=== PATIENT | female | born 1995 | race Caucasian/White ===

== ENCOUNTER 2016-06-16 12:26 | Emergency (ER) | payer OTHER ==
[2016-06-16 12:35] VITALS: BP 127/60; PULSE 88; TEMP 98; BMI 37.4
--- NOTE | 2016-06-16 13:24 | PDOC ---
History of Present Illness - General History Source: Patient Exam Limitations: No Limitations - History of Present Illness Initial Comments: CHIEF COMPLAINT: 21 y/o afebrile , female with lower abdominal cramping this morning. HISTORY OF PRESENT ILLNESS: The patient has no idea when her LMP was - she thinks maybe in february or march. She states she did have a positive test but her first [facility] apptmt is not until this thursday. She states this morning she began having lower abdominal cramps that feel like period cramps. She denies f/c, n/v/d, CP, SOB, back pain, vaginal bleeding, vaginal discharge. Vital signs on arrival are within normal limits. REVIEW OF SYSTEMS: GENERAL/CONSTITUTIONAL: No fever/chills. No weakness. No weight change. HEAD, EYES, EARS, NOSE AND THROAT: No change in vision. No ear pain or discharge. No sore throat. CARDIOVASCULAR: No chest pain or shortness of breath. RESPIRATORY: No cough, wheezing, or hemoptysis. GASTROINTESTINAL: +lower abd cramping. No nausea, vomiting, diarrhea. GENITOURINARY: No dysuria, frequency, or change in urination. MUSCULOSKELETAL: No joint or muscle swelling or pain. No neck or back pain. SKIN: No rash or easy bruising. NEUROLOGIC: No headache, vertigo, loss of consciousness, or loss of sensation. PSYCHIATRIC: No depression or anxiety. ENDOCRINE: No increased thirst. No abnormal weight change. HEMATOLOGIC/LYMPHATIC: No anemia, easy bleeding, or history of blood clots. ALLERGIC/IMMUNOLOGIC: No hives or skin allergy. No latex allergy. PHYSICAL EXAM: GENERAL: The patient is awake, alert, and fully oriented, in no acute distress. She is very well appearing, ambulatory, in NAD or obvious discomfort. She is morbidly obese. HEAD: Normal with no signs of trauma. ENT: Pupils equal, round and reactive to light, extraocular movements intact, sclera anicteric, conjunctiva clear. Neck supple. LUNGS: Clear to auscultation bilaterally. Normal excursion. No respiratory distress or use of accessory muscles. CV: RRR, S1/S2, no MRG. Cap refill < 2 sec. ABDOMEN: Soft, non-distended, non-tender even to deep palpation, no hepatomegaly or splenomegaly, no masses. BACK: No CVA TTP b/l. EXTREMITIES: Normal range of motion, no edema. NEUROLOGICAL: Normal speech, normal gait. CN II-XII grossly intact. PSYCH: Normal mood, normal affect. SKIN: Warm, dry, normal turgor, no rashes or lesions noted. <Bria Mejia - Last Filed: 06/16/16 19:08> <Brandon Mendez - Last Filed: 06/16/16 19:40> <Rob Grijalva - Last Filed: 06/21/16 10:04> - General Chief Complaint: Pain Stated Complaint: ABD PAIN, (WKS N/A) Time Seen by Provider: 06/16/16 13:05 Past History - Past Medical History Anemia: Yes Asthma: No Cancer: No Cardiac Disorders: No Diabetes: No HTN: No Suicide Attempt (Hx): No Seizures: No Thyroid Disease: No - Psycho/Social/Smoking Cessation Hx Suicidal Ideation: No Smoking History: Never smoked Number of Cigarettes Smoked Daily: 0 Information on smoking cessation initiated: No Hx Alcohol Use: No Drug/Substance Use Hx: No Substance Use Type: None Hx Substance Use Treatment: No <Bria Mejia - Last Filed: 06/16/16 19:08> <Brandon Mendez - Last Filed: 06/16/16 19:40> <Rob Grijalva - Last Filed: 06/21/16 10:04> - Past Medical History Allergies/Adverse Reactions: Allergies Allergy/AdvReac Type Severity Reaction Status Date / Time No Known Allergies Allergy Verified 06/16/16 12:35 Home Medications: Ambulatory Orders Cephalexin [Keflex] 500 mg PO BID #14 capsule 06/16/16 *Physical Exam - Vital Signs Last Vital Signs Temp Pulse Resp BP Pulse Ox 98 F 88 18 127/60 98 06/16/16 12:31 06/16/16 12:31 06/16/16 12:31 06/16/16 12:31 06/16/16 12:31 <Bria Mejia - Last Filed: 06/16/16 19:08> - Vital Signs Last Vital Signs Temp Pulse Resp BP Pulse Ox 98 F 88 18 127/60 98 06/16/16 12:31 06/16/16 12:31 06/16/16 12:31 06/16/16 12:31 06/16/16 12:31 <Brandon Mendez - Last Filed: 06/16/16 19:40> - Vital Signs Last Vital Signs Temp Pulse Resp BP Pulse Ox 98 F 88 18 127/60 98 06/16/16 12:31 06/16/16 12:31 06/16/16 12:31 06/16/16 12:31 06/16/16 12:31 <Rob Grijalva - Last Filed: 06/21/16 10:04> ED Treatment Course - LABORATORY CBC & Chemistry Diagram: 06/16/16 14:49 06/16/16 14:49 <Bria Mejia - Last Filed: 06/16/16 19:08> - LABORATORY CBC & Chemistry Diagram: 06/16/16 14:49 06/16/16 14:49 - ADDITIONAL ORDERS Additional order review: Laboratory Results 06/16/16 06/16/16 06/16/16 16:39 14:49 14:49 Sodium 140 Potassium 4.2 Chloride 104 Carbon Dioxide 28 Anion Gap 8 BUN 11 Creatinine 0.7 D Creat Clearance w eGFR > 60 Random Glucose 81 Calcium 9.1 Total Bilirubin 0.4 D AST 23 ALT 44 D Alkaline Phosphatase 116 D Total Protein 7.7 D Albumin 3.7 D Beta HCG, Quant 79591.2 Urine Color Ltyellow Urine Appearance Slcloudy Urine pH 6.0 Ur Specific [place] 1.013 Urine Protein Negative Urine Glucose (UA) Negative Urine Ketones Negative Urine Blood Negative Urine Nitrite Negative Urine Bilirubin Negative Urine Urobilinogen Negative Ur Leukocyte Esterase 3+ H Urine RBC 1 Urine WBC 46 Ur Epithelial Cells Few Urine Bacteria Rare Urine Mucus Few Blood Type O POSITIVE Antibody Screen Negative 06/16/16 14:49 RBC 4.61 D MCV 83.2 MCHC 32.9 RDW 14.4 MPV 8.3 D Neutrophils % 75.2 Lymphocytes % 18.6 Monocytes % 5.1 Eosinophils % 0.7 D Basophils % 0.4 - Medications Given in the ED: ED Medications Discontinued Medications Generic Name Dose Route Start Last Admin Trade Name Freq PRN Reason Stop Dose Admin Cephalexin HCl 500 mg 06/16/16 18:53 06/16/16 19:29 Keflex - PO 06/16/16 18:54 500 mg ONCE ONE Administration <Brandon Mendez - Last Filed: 06/16/16 19:40> - LABORATORY CBC & Chemistry Diagram: 06/16/16 14:49 06/16/16 14:49 - ADDITIONAL ORDERS Additional order review: 06/16/16 16:39 Urine Culture - Final Urine - Urine Clean Catch NO GROWTH OBTAINED 06/16/16 14:49 RBC 4.61 D MCV 83.2 MCHC 32.9 RDW 14.4 MPV 8.3 D Neutrophils % 75.2 Lymphocytes % 18.6 Monocytes % 5.1 Eosinophils % 0.7 D Basophils % 0.4 - Medications Given in the ED: ED Medications Discontinued Medications Generic Name Dose Route Start Last Admin Trade Name Frechava PRN Reason Stop Dose Admin Cephalexin HCl 500 mg 06/16/16 18:53 06/16/16 19:29 Keflex - PO 06/16/16 18:54 500 mg ONCE ONE Administration <Rob Grijalva - Last Filed: 06/21/16 10:04> Medical Decision Making - Medical Decision Making A/P: 21 y/o afebrile female with lower abdominal cramping today. Plan is as follows: 1. Labs 2. UA/culture 3. Beta hcg 4. ultrasound Labs unremarkable UA positive for UTI. Will give PO keflex in the ER. Transvaginal Ultrasound IMPRESSION: Single live intrauterine of 7 weeks 1 day. heart rate detected. Ovaries normal. Will discharge to home with Rx for keflex and instructed her to finish entire course. Suggested she keep her [facility] appointment scheduled for thursday and return to the ER with any worsening or concerning symptoms. The patient verbalizes understanding of all instructions, has no further questions and is awaiting discharge. <Bria Mejia - Last Filed: 06/16/16 19:08> - Medical Decision Making 06/21/16 10:04 The patient was seen and evaluated in conjunction with MITCH Mejia under my direct supervision, ancillary studies were reviewed. I agree with the plan as outlined by MITCH Mejia . <Rob Grijalva - Last Filed: 06/21/16 10:04> *DC/Admit/Observation/Transfer <Bria Mejia - Last Filed: 06/16/16 19:08> <Brandon Mendez - Last Filed: 06/16/16 19:40> <Rob Grijalva - Last Filed: 06/21/16 10:04> Diagnosis at time of Disposition: UTI (urinary tract infection) during , Abdominal pain complicating - Discharge Dispostion Disposition: HOME Condition at time of disposition: Good - Prescriptions Prescriptions: Cephalexin [Keflex] 500 mg PO BID #14 capsule - Patient Instructions Printed Discharge Instructions: DI for Urinary Tract Infection (UTI), DI for Abdominal Pain -- Early Additional Instructions: Discharge Instructions: -Take Tylenol if needed for pain -Take entire 7 days of Keflex for UTI -Keep your [facility] appointment scheduled for Thursday -Return to the ER with any worsening or concerning symptoms. Print Language: WOLOF - Post Discharge Activity Work/School Note: Parent(s) Back to Work Note
[2016-06-16 15:02] LABS: BASOPHIL 0.4 % (0-2.0); EOSINOPHIL 0.7 % (0-4.5); MCH 27.3 pg (25.7-33.7); MCHC 32.9 g/dl (32.0-36.0); MEAN CELL VOLUME 83.2 fl (80-96); MEAN PLT VOLUME 8.3 fl (7.5-11.1); NEUTROPHILS 75.2 % (42.8-82.8); PLATELET COUNT 347 K/MM3 (134-434); RDW 14.4 % (11.6-15.6); WHITE BLOOD COUNT 15.8 K/mm3 (4.0-10.0)
[2016-06-16 15:38] LABS: ALBUMIN 3.7 g/dl (3.4-5.0); ANION GAP 8 (8-16); CALCIUM 9.1 mg/dL (8.5-10.1); CO2 28 mmol/L (21-32); CREATININE 0.7 mg/dL (0.55-1.02); GLUCOSE,RANDOM 81 mg/dL (74-106); SGOT/AST 23 U/L (15-37)
[2016-06-16 15:56] LABS: ALK PHOS 116 U/L (45-117); BILIRUBIN,TOTAL 0.4 mg/dL (0.2-1.0); SGPT/ALT 44 U/L (12-78); TOT PROT 7.7 g/dl (6.4-8.2)
[2016-06-16 16:59] LABS: URINE APPEARANCE SLCLOUDY; URINE BILIRUBIN NEGATIVE (NEGATIVE); URINE BLOOD NEGATIVE (NEGATIVE); URINE COLOR LTYELLOW; URINE GLUCOSE (UA) NEGATIVE (NEGATIVE); URINE KETONE NEGATIVE (NEGATIVE); URINE NITRITE NEGATIVE (NEGATIVE); URINE PROTEIN NEGATIVE (NEGATIVE); URINE UROBILINOGEN NEGATIVE E.U./dl (0.2-1.0)
[2016-06-16 17:00] LABS: URINE LEUK ESTERASE 3+ (NEGATIVE)
[2016-06-16 17:01] LABS: URINE BACTERIA RARE /hpf (NONE SEEN); URINE MUCUS FEW; URINE RBC 1 /hpf (0-3); URINE WBC 46 /hpf (3-5)
[2016-06-16] MEDS ORDERED: CEPHALEXIN MONOHYDRATE 500 MG CAPSULE (UD) PO ONE (18:53)
[2016-06-16] MEDS ORDERED: CEPHALEXIN MONOHYDRATE 250 MG CAPSULE (FP) ONE (19:04)
== END 2016-06-16 19:47 | disposition home or self-care (01) ==
LOC: JER 12:26
DX: O23.41 Unspecified infection of urinary tract in pregnancy, first trimester (principal); Z3A.01 Less than 8 weeks gestation of pregnancy
CPT/HCPCS: 36415; 76817-TC; 80053; 81003; 81015; 84702; 85025; 86850; 86900; 86901; 87086; 99283-25

== ENCOUNTER 2017-01-26 09:20 | Inpatient (IN) | payer OTHER ==
[2017-01-26] MEDS ORDERED: BUTORPHANOL TARTRATE 1 MG/ML VIAL IVPUSH ONE (10:40)
[2017-01-26] MEDS ORDERED: PROMETHAZINE HCL 25 MG/1 ML VIAL IVPUSH ONE (10:40)
[2017-01-26] MEDS: DEXTROSE 5%-LACTATED RINGERS 1,000 ML IV SCH (10:45)
[2017-01-26 11:48] VITALS: BMI 42.3
[2017-01-26 11:56] LABS: BASOPHIL 0.2 % (0-2.0); EOSINOPHIL 0.1 % (0-4.5); MCHC 33.1 g/dl (32.0-36.0); MEAN CELL VOLUME 84.6 fl (80-96); NEUTROPHILS 87.3 % (42.8-82.8); PLATELET COUNT 216 K/MM3 (134-434); RDW 16.1 % (11.6-15.6); WHITE BLOOD COUNT 17.4 K/mm3 (4.0-10.0)
[2017-01-26 12:12] LABS: ANION GAP 11 (8-16); CALCIUM 8.7 mg/dL (8.5-10.1); CO2 22 mmol/L (21-32); CREATININE 0.5 mg/dL (0.55-1.02); GLUCOSE,RANDOM 113 mg/dL (74-106)
[2017-01-26 12:33] LABS: INR 1.05 (0.82-1.09); PROTHROMBIN TIME (PATIENT) 11.6 SEC (9.98-11.88)
[2017-01-26 12:36] LABS: ACTIVATED PTT 28.5 SECONDS (26.9-34.4)
[2017-01-26] MEDS: ELECTROLYTE-148 SOLN 1,000 ML IV SCH ×2 (14:15→16:40)
--- NOTE | 2017-01-26 14:42 | HP ---
Past Medical History - Admission Chief Complaint: Labor pain History of Present Illness: 21 yo @ 39 weeks gestation, admitted for labor pain. She denies any ROM nor vaginal bleeding. History Source: Patient Limitations to Obtaining History: No Limitations - Past Medical History ...: 2 ...Para: 1 ...Term: 1 ...: 0 ...Spon : 0 ...Induced : 0 ...Multiple Gestation: 0 ...LMP: 04/22/16 ... Weeks Gestation by Dates: 39.6 ...EDC by Dates: 01/27/17 ...EDC by Sono: 01/27/17 Heme/Onc: Yes: Anemia - Past Surgical History Past Surgical History: Yes: None Hx Myomectomy: No Hx Transabdominal Cerclage: No - Smoking History Smoking history: Never smoked Have you smoked in the past 12 months: No Aproximately how many cigarettes per day: 0 - Alcohol/Substance Use Hx Alcohol Use: No - Social History Usual Living Arrangement: Yes: With Spouse History of Recent Travel: No Home Medications - Allergies Allergies/Adverse Reactions: Allergies Allergy/AdvReac Type Severity Reaction Status Date / Time No Known Allergies Allergy Verified 01/26/17 11:06 - Home Medications Home Medications: Ambulatory Orders Ferrous Sulfate [Feosol] 325 mg PO DAILY 01/26/17 Vit/Iron Fumarate/FA [ Tablet] 1 each PO DAILY 01/26/17 Family Disease History - Family Disease History Family History: Unremarkable Review of Systems - Review of Systems Constitutional: reports: No Symptoms Eyes: reports: No Symptoms HENT: reports: No Symptoms Neck: reports: No Symptoms Cardiovascular: reports: No Symptoms Respiratory: reports: No Symptoms Gastrointestinal: reports: No Symptoms Genitourinary: reports: Pain Breasts: reports: No Symptoms Reported Musculoskeletal: reports: No Symptoms Integumentary: reports: No Symptoms Neurological: reports: No Symptoms Psychiatric: reports: No Symptoms Pain Intensity: 6 Physical Exam - Maternity Vital Signs: Vital Signs Temperature 98.2 F 01/26/17 14:00 Pulse Rate 97 H 01/26/17 14:00 Respiratory Rate 20 01/26/17 14:00 Blood Pressure 110/57 01/26/17 14:00 O2 Sat by Pulse Oximetry (%) Constitutional: Yes: Well Nourished Eyes: Yes: Conjunctiva Clear HENT: Yes: Atraumatic Neck: Yes: Supple Cardiovascular: Yes: Regular Rate and Rhythm Lungs: Clear to auscultation - Abdominal Exam/OB Number of Fetuses: Single Presentation: Vertex Intensity: Moderate - Physical Exam ...Motor Strength: WNL Psychiatric: Yes: Alert, Oriented - Labs Lab Results: CBC, BMP 01/26/17 11:30 01/26/17 11:30 Problem List - Problems (1) Pain during labor Code(s): O99.89 - OTH DISEASES AND CONDITIONS COMPL PREG/CHLDBRTH R52 - PAIN, UNSPECIFIED Assessment/Plan Active labor Admit to L&D Analgesia as needed Anticipate
[2017-01-26] MEDS: FENTANYL/BUPIVACAINE/NS/PF - PCEA - 50 ML DISP.SYRIN EP SCH (15:20)
[2017-01-26] MEDS ORDERED: CITRIC ACID/SODIUM CITRATE 30 ML UNIT-DOSE CUP PO ONE (18:23)
--- NOTE | 2017-01-26 18:29 | PN ---
Progress Note (short form) - Note Progress Note: Patient seen and evaluated, she's comfortable after epidural anesthesia. There was and episode of bradycardia thereafter FHR remained at 180 BPM. Extensive discussion with patient and partner. VE : Decision made for Consent signed Anesthesia to see patient. Problem List - Problems (1) Pain during labor Code(s): O99.89 - OTH DISEASES AND CONDITIONS COMPL PREG/CHLDBRTH R52 - PAIN, UNSPECIFIED
--- NOTE | 2017-01-26 18:30 | OP ---
Operative Note - Note: Operative Date: 01/26/17 Pre-Operative Diagnosis: Non Reassuring Heart Rate Operation: Primary Post-Operative Diagnosis: Same as Pre-op Surgeon: Sharonda Da Silva Element Setter: Brandon Hemphill Anesthesia: Epidural Specimens Removed: Placenta
[2017-01-26] MEDS ORDERED: morphine SULFATE/Preservative Free 0.5 MG/ML (1cc Syringe) EP ONE (19:05)
[2017-01-26] MEDS ORDERED: ONDANSETRON 4 MG/2 ML VIAL IVPB PRN (19:05)
[2017-01-26] MEDS ORDERED: SENNOSIDES/DOCUSATE COMBO (SENNA PLUS) TABLET (UD) PO PRN (20:03)
[2017-01-26] MEDS ORDERED: METHYLERGONOVINE MALEATE 0.2 MG/1 ML AMP IM PRN (20:03)
[2017-01-26] MEDS ORDERED: oxyCODONE HCL 5 MG TABLET PO PRN (20:03)
[2017-01-26] MEDS ORDERED: IBUPROFEN 800 MG/8 ML IJ IVPB PRN (20:03)
--- NOTE | 2017-01-26 20:06 | PN ---
Delivery - Delivery Section: Primary Type of Anesthesia: Epidural EBL (cc): 700 Delivery, Single - Feeding Plan Initial Plan: Exclusive throughout hospitalization
[2017-01-26] MEDS ORDERED: D5W-LR W/ 20 UNITS OXYTOCIN 1,000 ML IV SCH (20:15)
[2017-01-27 08:03] LABS: MCH 27.4 pg (25.7-33.7); MCHC 32.3 g/dl (32.0-36.0); MEAN CELL VOLUME 84.9 fl (80-96); MEAN PLT VOLUME 9.6 fl (7.5-11.1); PLATELET COUNT 201 K/MM3 (134-434); RDW 15.8 % (11.6-15.6); WHITE BLOOD COUNT 21.1 K/mm3 (4.0-10.0)
[2017-01-27] MEDS: FERROUS SO4 325 MG TABLET (FP) PO SCH ×2 (09:22→17:58)
[2017-01-27] MEDS: PRENATAL VITAMINS W/ FOLIC ACID TABLET (FP) PO SCH (09:22)
[2017-01-27 10:59] LABS: METAMYELOCYTE 1 % (0-2); PLATELET ESTIMATE ADEQUATE (NORMAL); TOTAL CELLS COUNTED 100
[2017-01-27] MEDS: ACETAMINOPHEN 325 MG TABLET (FP) PO PRN ×3 (12:38→21:22)
[2017-01-27] MEDS: SIMETHICONE 80 MG TAB.CHEW (FP) PO PRN ×3 (12:38→21:21)
--- NOTE | 2017-01-27 13:48 | PN ---
Progress Note (short form) - Note Progress Note: POD #1 - s/p under epidural anesthesia with duramorph. Pt. doing well , sitting up comfortably in bed. No complaints. Good pain control. No apparent anesthetic complications noted. Continue current care.
--- NOTE | 2017-01-27 14:23 | PN ---
Post Progress Note - Subjective Subjective: 21 yo Para 2, status post primary , seen and evaluated. Doing well. Post Day: 1 Type of Delivery: Primary C/S Vital Signs: Vital Signs Temperature 99.3 F 01/27/17 09:00 Pulse Rate 89 01/27/17 09:00 Respiratory Rate 20 01/27/17 13:00 Blood Pressure 103/63 01/27/17 09:00 O2 Sat by Pulse Oximetry (%) 100 01/26/17 21:05 Breast Exam: Yes: Soft Uterus: Yes: Fundus Firm Incision: Yes: Dressing dry and intact Abdomen/GI: Yes: Abdomen soft, Tolerating PO Lochia: Yes: Rubra Lochia, amount: Small Extremities: Yes: Calves non-tender Perineum: Yes: Intact Activity: Other (She's lying in bed) - Labs Labs: CBC WBC 21.1 K/mm3 (4.0-10.0) H 01/27/17 06:00 RBC 3.44 M/mm3 (3.60-5.2) L 01/27/17 06:00 Hgb 9.4 GM/dL (10.7-15.3) L D 01/27/17 06:00 Hct 29.2 % (32.4-45.2) L 01/27/17 06:00 MCV 84.9 fl (80-96) 01/27/17 06:00 MCH 27.4 pg (25.7-33.7) 01/27/17 06:00 MCHC 32.3 g/dl (32.0-36.0) 01/27/17 06:00 RDW 15.8 % (11.6-15.6) H 01/27/17 06:00 Plt Count 201 K/MM3 (134-434) 01/27/17 06:00 MPV 9.6 fl (7.5-11.1) 01/27/17 06:00 Total Counted 100 01/27/17 06:00 Neutrophils % Y 01/27/17 06:00 Neutrophils % (Manual) 81 % (42.8-82.8) 01/27/17 06:00 Band Neuts % (Manual) 1 % (0-10) 01/27/17 06:00 Lymphocytes % Y 01/27/17 06:00 Lymphocytes % (Manual) 13 % (8-40) 01/27/17 06:00 Monocytes % 3.0 % (3.8-10.2) L 01/26/17 11:30 Monocytes % (Manual) 4 % (3.8-10.2) 01/27/17 06:00 Eosinophils % 0.1 % (0-4.5) D 01/26/17 11:30 Basophils % 0.2 % (0-2.0) 01/26/17 11:30 Platelet Estimate Adequate (NORMAL) 01/27/17 06:00 Problem List - Problems (1) Pain during labor Code(s): O99.89 - OTH DISEASES AND CONDITIONS COMPL PREG/CHLDBRTH R52 - PAIN, UNSPECIFIED Assessment/Plan Status post primary Stable Ambulation Analgesia as needed Continue routine post op care
[2017-01-27] MEDS: IBUPROFEN 600 MG TABLET (FP) PO PRN ×2 (16:22→21:21)
[2017-01-27] MEDS: DEXTROSE 5%-LACTATED RINGERS 1,000 ML IV SCH (16:23)
[2017-01-27] MEDS: FENTANYL/BUPIVACAINE/NS/PF - PCEA - 50 ML DISP.SYRIN EP SCH (19:38)
[2017-01-27] MEDS ORDERED: BISACODYL 10 MG SUPP.RECT RC PRN (20:03)
--- NOTE | 2017-01-28 08:30 | PN ---
Post Progress Note - Subjective Subjective: c/o pain scale 7/10 , voiding without difficulty Post Day: 2 Type of Delivery: Primary C/S Vital Signs: Vital Signs Temperature 97.6 F 01/27/17 21:00 Pulse Rate 89 01/27/17 21:00 Respiratory Rate 20 01/27/17 21:00 Blood Pressure 96/60 01/27/17 21:00 O2 Sat by Pulse Oximetry (%) 100 01/26/17 21:05 Breast Exam: Yes: Soft, Other (BF ). No: Engorged Uterus: Yes: Fundus Firm, Fundus below umbilicus, Non-tender Incision: Yes: Dressing dry and intact (to be removed today. ) Abdomen/GI: Yes: Abdomen soft, Passing flatus, Tolerating PO (diet ). No: Abdominal Distention, Tender Lochia: Yes: Rubra Lochia, amount: Moderate Extremities: Yes: Calves non-tender, Edema Perineum: Yes: Intact Activity: Ambulating - Labs Labs: CBC WBC 21.1 K/mm3 (4.0-10.0) H 01/27/17 06:00 RBC 3.44 M/mm3 (3.60-5.2) L 01/27/17 06:00 Hgb 9.4 GM/dL (10.7-15.3) L D 01/27/17 06:00 Hct 29.2 % (32.4-45.2) L 01/27/17 06:00 MCV 84.9 fl (80-96) 01/27/17 06:00 MCH 27.4 pg (25.7-33.7) 01/27/17 06:00 MCHC 32.3 g/dl (32.0-36.0) 01/27/17 06:00 RDW 15.8 % (11.6-15.6) H 01/27/17 06:00 Plt Count 201 K/MM3 (134-434) 01/27/17 06:00 MPV 9.6 fl (7.5-11.1) 01/27/17 06:00 Total Counted 100 01/27/17 06:00 Neutrophils % Y 01/27/17 06:00 Neutrophils % (Manual) 81 % (42.8-82.8) 01/27/17 06:00 Band Neuts % (Manual) 1 % (0-10) 01/27/17 06:00 Lymphocytes % Y 01/27/17 06:00 Lymphocytes % (Manual) 13 % (8-40) 01/27/17 06:00 Monocytes % 3.0 % (3.8-10.2) L 01/26/17 11:30 Monocytes % (Manual) 4 % (3.8-10.2) 01/27/17 06:00 Eosinophils % 0.1 % (0-4.5) D 01/26/17 11:30 Basophils % 0.2 % (0-2.0) 01/26/17 11:30 Platelet Estimate Adequate (NORMAL) 01/27/17 06:00 Assessment/Plan post c/s #day2 stable. anemia noted , stable plan encourage ambulation & po fluids
[2017-01-28] MEDS: SIMETHICONE 80 MG TAB.CHEW (FP) PO PRN ×3 (09:32→22:37)
[2017-01-28] MEDS: PRENATAL VITAMINS W/ FOLIC ACID TABLET (FP) PO SCH (09:32)
[2017-01-28] MEDS: FERROUS SO4 325 MG TABLET (FP) PO SCH ×2 (09:32→18:04)
[2017-01-28] MEDS: IBUPROFEN 600 MG TABLET (FP) PO PRN ×3 (09:33→22:37)
[2017-01-28] MEDS: ACETAMINOPHEN 325 MG TABLET (FP) PO PRN (09:34)
[2017-01-28] MEDS: oxyCODONE HCL 5 MG TABLET PO PRN ×3 (12:33→22:38)
--- NOTE | 2017-01-28 16:44 | PATH ---
Surgical Pathology Report Patient Name: TWYLA LYNCH Med. Rec. #: [id number] /Age/Gender: 1995 (Age: 21) / F Account: [id number] Location: [facility] OBS/CLINICAL SOCIOLOGIST Taken: 01/26/2017 Received: 01/27/2017 Reported: 01/28/2017 Physicians: Sharonda Da Silva M.D. Specimen(s) Received PLACENTA Clinical History 39.6 weeks, obese, December 2014 Primary c/section tachycardia Final Diagnosis PLACENTA, DELIVERY: FOCALLY DISRUPTED THIRD TRIMESTER PLACENTA WITH MILD INCREASE IN PREVILLOUS, PERIVILLOUS, AND PRECHORIONIC FIBRIN DEPOSITION, EXTENSIVE CALCIFICATIONS, THREE VESSEL UMBILICAL CORD WITH PARAMARGINAL INSERTION, AND PLACENTAL MEMBRANES WITH CIRCUMMARGINATE INSERTION. Electronically Signed Eh Saldana M.D. Gross Description The specimen is received fresh, labeled "placenta" and is a 558 gram, 16 x 13 x 4 cm partially lacerated and disrupted placenta with attached membranes and umbilical cord. The attached membranes are glistening and translucent and insert in a circummarginate manner up to 2 cm from the central margin. The umbilical cord measures 57 cm in length and averages 1 cm in diameter. The cord inserts paramarginally, 1 cm to the nearest margin. No true knots or strictures are identified. Cut surface of the umbilical cord reveals 3 vessels. The surface is vee-blue with minimal fibrin deposition and appropriate caliber vessels. The maternal surface is red-brown with focal defects. Sectioning reveals red-brown, spongy parenchyma. No focal lesions are identified. Placement Assistant sections are submitted in three cassettes as follows: 1- membrane rolls and umbilical cord; 2-3- full thickness sections of placenta. [facility]/01/27/2017 [facility]/01/27/2017
[2017-01-29] MEDS: IBUPROFEN 600 MG TABLET (FP) PO PRN ×4 (05:35→20:05)
[2017-01-29] MEDS: oxyCODONE HCL 5 MG TABLET PO PRN ×4 (05:36→20:05)
[2017-01-29] MEDS: FERROUS SO4 325 MG TABLET (FP) PO SCH ×2 (08:03→17:09)
[2017-01-29 08:39] LABS: BASOPHIL 0.2 % (0-2.0); EOSINOPHIL 1.2 % (0-4.5); MCH 27.4 pg (25.7-33.7); MCHC 32.3 g/dl (32.0-36.0); MEAN CELL VOLUME 84.9 fl (80-96); MEAN PLT VOLUME 8.5 fl (7.5-11.1); NEUTROPHILS 76.5 % (42.8-82.8); PLATELET COUNT 231 K/MM3 (134-434); RDW 16.1 % (11.6-15.6)
[2017-01-29] MEDS: SIMETHICONE 80 MG TAB.CHEW (FP) PO PRN ×3 (09:41→20:05)
[2017-01-29] MEDS: ACETAMINOPHEN 325 MG TABLET (FP) PO PRN ×2 (09:42→14:39)
[2017-01-29] MEDS: PRENATAL VITAMINS W/ FOLIC ACID TABLET (FP) PO SCH (09:42)
--- NOTE | 2017-01-29 22:43 | PN ---
Post Progress Note - Subjective Subjective: 21 yo status post primary , seen and evaluated. Doing well. Post Day: 3 Type of Delivery: Primary C/S Vital Signs: Vital Signs Temperature 98.4 F 01/29/17 20:07 Pulse Rate 60 01/29/17 20:07 Respiratory Rate 20 01/29/17 20:07 Blood Pressure 111/67 01/29/17 20:07 O2 Sat by Pulse Oximetry (%) 100 01/26/17 21:05 Breast Exam: Yes: Soft Uterus: Yes: Fundus Firm Incision: Yes: Sutures intact Abdomen/GI: Yes: Abdomen soft Lochia: Yes: Rubra Lochia, amount: Small Extremities: Yes: Calves non-tender Perineum: Yes: Intact Activity: Ambulating - Labs Labs: CBC WBC 16.0 K/mm3 (4.0-10.0) H 01/29/17 07:30 RBC 3.65 M/mm3 (3.60-5.2) 01/29/17 07:30 Hgb 10.0 GM/dL (10.7-15.3) L 01/29/17 07:30 Hct 31.0 % (32.4-45.2) L 01/29/17 07:30 MCV 84.9 fl (80-96) 01/29/17 07:30 MCH 27.4 pg (25.7-33.7) 01/29/17 07:30 MCHC 32.3 g/dl (32.0-36.0) 01/29/17 07:30 RDW 16.1 % (11.6-15.6) H 01/29/17 07:30 Plt Count 231 K/MM3 (134-434) 01/29/17 07:30 MPV 8.5 fl (7.5-11.1) D 01/29/17 07:30 Total Counted 100 01/27/17 06:00 Neutrophils % 76.5 % (42.8-82.8) 01/29/17 07:30 Neutrophils % (Manual) 81 % (42.8-82.8) 01/27/17 06:00 Band Neuts % (Manual) 1 % (0-10) 01/27/17 06:00 Lymphocytes % 17.3 % (8-40) D 01/29/17 07:30 Lymphocytes % (Manual) 13 % (8-40) 01/27/17 06:00 Monocytes % 4.8 % (3.8-10.2) 01/29/17 07:30 Monocytes % (Manual) 4 % (3.8-10.2) 01/27/17 06:00 Eosinophils % 1.2 % (0-4.5) D 01/29/17 07:30 Basophils % 0.2 % (0-2.0) 01/29/17 07:30 Platelet Estimate Adequate (NORMAL) 01/27/17 06:00 Problem List - Problems (1) Pain during labor Code(s): O99.89 - OTH DISEASES AND CONDITIONS COMPL PREG/CHLDBRTH R52 - PAIN, UNSPECIFIED Assessment/Plan Status post primary Stable Ambulation Analgesia as needed Continue routine post op care
[2017-01-30] MEDS: FERROUS SO4 325 MG TABLET (FP) PO SCH (07:58)
[2017-01-30] MEDS: SIMETHICONE 80 MG TAB.CHEW (FP) PO PRN (08:09)
[2017-01-30] MEDS: ACETAMINOPHEN 325 MG TABLET (FP) PO PRN (08:09)
[2017-01-30] MEDS: IBUPROFEN 600 MG TABLET (FP) PO PRN (08:09)
[2017-01-30 09:42] VITALS: BP 122/74; PULSE 80; TEMP 98.2
[2017-01-30] MEDS: PRENATAL VITAMINS W/ FOLIC ACID TABLET (FP) PO SCH (10:08)
== END 2017-01-30 12:20 | disposition home or self-care (01) | DRG 540 ==
LOC: JDEL 09:20 → JLDR 09:40 → J3W 22:43
PROVIDERS: ADMIT Obstetrics & Gynecology; ATTEND Obstetrics & Gynecology
PROC: 10D00Z1 Extraction of Products of Conception, Low, Open Approach (ICD-10-PCS; principal; 2017-01-26)
DX: O76 Abnormality in fetal heart rate and rhythm complicating labor and delivery (principal); O99.214 Obesity complicating childbirth; E66.9 Obesity, unspecified; Z68.41 Body mass index [BMI] 40.0-44.9, adult; O99.02 Anemia complicating childbirth; Z3A.39 39 weeks gestation of pregnancy; Z37.0 Single live birth
CPT/HCPCS: 36415; 80048; 85025; 85610; 85730; 86593; 86850; 86900; 86901; 88307-TC